=== PATIENT | male | born 1990 | race Caucasian/White ===

== ENCOUNTER 2018-06-16 18:14 | Emergency (ER) | payer OTHER ==
[~2018-06-16] VITALS: Ht 180.3 cm; Wt 101.6 kg
[2018-06-16 18:22] VITALS: Ht 180.3 cm; Wt 101.6 kg
[2018-06-16 20:27] VITALS: BP 116/69
== END 2018-06-16 20:27 | disposition home or self-care (01) ==
LOC: ED 18:14
DX: T23.002A Burn of unspecified degree of left hand, unspecified site, initial encounter (principal); T79.9XXA Unspecified early complication of trauma, initial encounter; X17.XXXA Contact with hot engines, machinery and tools, initial encounter; Y93.I9 Activity, other involving external motion; Y92.89 Other specified places as the place of occurrence of the external cause; Y99.8 Other external cause status